=== PATIENT | male | born 1975 | race African-American/Black ===

== ENCOUNTER 2017-03-12 00:50 | Emergency (ER) | payer MEDICAID ==
[~2017-03-12] VITALS: Ht 165.1 cm; Wt 56.5 kg
[2017-03-12 00:54] VITALS: BP 119/77
[2017-03-12] MEDS ORDERED: HYDROcodone/APAP 5/325 TABLET ONE (01:25)
[2017-03-12] MEDS ORDERED: HYDROcodone/APAP 5/325 TABLET PO ONE (01:30)
== END 2017-03-12 01:47 | disposition home or self-care (01) ==
LOC: ED 01:45
DX: K02.9 Dental caries, unspecified (principal)
CPT/HCPCS: 99283

== ENCOUNTER 2017-05-08 06:15 | Emergency (ER) | payer MEDICAID ==
[~2017-05-08] VITALS: Ht 165.1 cm; Wt 61.0 kg
[2017-05-08 12:38] VITALS: BP 106/66
== END 2017-05-08 12:40 | disposition home or self-care (01) ==
LOC: ED 10:14
DX: F41.1 Generalized anxiety disorder (principal); F22 Delusional disorders; F17.200 Nicotine dependence, unspecified, uncomplicated
CPT/HCPCS: 99283; 99284

== ENCOUNTER 2018-03-20 13:04 | Emergency (ER) | payer MEDICAID ==
[~2018-03-20] VITALS: Ht 165.1 cm; Wt 55.5 kg
[2018-03-20 13:07] VITALS: BP 112/67
[2018-03-20] MEDS ORDERED: MECLIZINE CHEWABLE 25 MG TAB ONE (19:24)
== END 2018-03-20 14:12 | disposition home or self-care (01) ==
LOC: ED 13:30
DX: L02.511 Cutaneous abscess of right hand (principal)
CPT/HCPCS: 99282